=== PATIENT | female | born 1965 | race Caucasian/White ===

== ENCOUNTER → 2016-04-22 12:20 | Outpatient (CLI) | payer BC | END | disposition home or self-care (01) | LOC: D.MRI 12:20 | DX: S43.491A Other sprain of right shoulder joint, initial encounter (principal) ==

== ENCOUNTER → 2016-06-02 08:45 | Outpatient (CLI) | payer BC ==
--- NOTE | 2016-06-06 08:22 | EMG ---
PATIENT:LIBBY DIETZ DATE OF SERVICE: 06/02/16 MEDICAL RECORD: [id number] DATE OF : 67 LOCATION: [facility] ADMISSION DATE: REFERRING PHYSICIAN: JUVENTINO GAYLE DO INTERPRETING PHYSICIAN: ADIEL SCHAFFER MD DATE OF SERVICE: 06/02/2016 REFERRED BY: Dr. Gayle as an outpatient. DATE OF EXAMINATION: 06/02/2016 ELECTROMYOGRAPHIC DATA: Electromyographic examination is limited to both upper extremities. In the right upper extremity, right median motor stimulation elicits a compound motor action potential with a distal latency of 4.1 milliseconds, peak amplitude of 5 millivolts, and calculated conduction velocity of 57 meters per second. Right ulnar motor stimulation elicits a compound motor action potential with a distal latency of 2.7 milliseconds, peak amplitude of 11 millivolts and calculated conduction velocity of 61 meters per second. Right ulnar motor stimulation across the elbow fails to elicit evidence of conduction block at this level. Antidromic right median sensory stimulation elicits a response with a distal latency of 5.0 milliseconds, amplitude of 14 microvolts and calculated conduction velocity of 54 meters per second. Antidromic right ulnar sensory stimulation elicits a response with a distal latency of 3.2 milliseconds, amplitude of 30 microvolts and calculated conduction velocity of 59 meters per second. The right median F wave has a latency of 26 milliseconds. In the left upper extremity, left median motor stimulation elicits a compound motor action potential with a distal latency of 3.5 milliseconds, peak amplitude of 9 millivolts, and calculated conduction velocity of 58 meters per second. Left ulnar motor stimulation elicits a compound motor action potential with a distal latency of 2.8 milliseconds, peak amplitude of 11 millivolts and calculated conduction velocity of 66 meters per second. Left ulnar motor stimulation across the elbow fails to elicit evidence of conduction block at this level. Antidromic left median sensory stimulation elicits a response with a distal latency of 3.8 milliseconds, amplitude of 24 microvolts and calculated conduction velocity of 56 meters per second. Antidromic left ulnar sensory stimulation elicits a response with a distal latency of 3.2 milliseconds, amplitude of 30 microvolts and calculated conduction velocity of 59 meters per second. The left median F wave has a latency of 28 milliseconds. Needle electrode examination is limited to both upper extremities as well. Muscles interrogated include the abductor pollicis brevis, first dorsal interosseous, abductor digiti minimi, pronator teres, biceps brachii, triceps and deltoid. There is no abnormality of insertional activity and no abnormal spontaneous activity is seen in all muscles interrogated. Motor unit potential morphology and the pattern of motor unit potential firing and recruitment is normal in all muscles sampled. INTERPRETATION: Electromyographic examination of both upper extremities is indicative of median neuropathy, at or distal to the wrist on the right, mild to moderate in degree electrically on the right, consistent with the diagnosis of right carpal tunnel syndrome. There is no electrical evidence of a superimposed ELECTROMYGRAM/NERVE CONDUCTION [id number] LIBBY DIETZ cervical radiculopathy or other lesion of the lower motor neuron in either upper extremity at this time. There is no evidence of active denervation. TRANSINT:[id number] Voice Confirmation ID: [id number] DOCUMENT ID: [id number] ADIEL SCHAFFER MD at 0822 CC: [id number] DICTATION DATE: 06/03/16 0850 BRAIDER SETTER: 06/04/16 0104 DEP CLI 06/02/16 [facility] [address] [place] [address]
== END | disposition home or self-care (01) ==
LOC: D.CT 04-15 15:30 → D.MAMMO 08:00 → D.CN 08:30 → D.MAMMO 08:45
DX: R51 Headache (principal); G56.03 Carpal tunnel syndrome, bilateral upper limbs

== ENCOUNTER 2017-02-01 12:45 | Day surgery (SDC) | payer BC ==
[2017-02-01 13:15] LABS: HEMATOCRIT 39.4 % (36.0-48.0); HEMOGLOBIN 12.7 g/dL (12-16); MCH 25.5 pg (26.0-34.0); MCHC 32.2 g/dL (31.0-37.0); MCV 79.1 fL (80.0-100.0); MEAN PLATELET VOLUME 9.3 fL (7.4-10.4); RBC 4.98 10x6/uL (4.00-5.40); RDW 15.9 % (11.5-14.5)
[2017-02-01 13:16] VITALS: BP 147/77; BMI 24.7
[2017-02-01 13:20] LABS: HCG URINE NEGATIVE (NEGATIVE)
--- NOTE | 2017-02-05 12:24 | OP ---
PATIENT NAME: LIBBY DIETZ MEDICAL RECORD: [id number] :67 LOCATION:[facility] ADMISSION DATE: SURGEON: DAVY BRANTLEY DO DATE OF OPERATION: 02/01/2017 PROCEDURE: Colonoscopy. INDICATIONS FOR PROCEDURE: Screening for colorectal cancer. SCOPE: Olympus video pediatric colonoscope. MEDICATIONS: Propofol 230 mg IV per anesthesia. WITHDRAWAL TIME: 7 minutes. ESTIMATED BLOOD LOSS: None. COMPLICATIONS: None. FINDINGS: Informed consent was given. The patient was made comfortable with the above medication. After reaching an adequate level of sedation by slow IV push, the patient was placed on her left side. A digital rectal examination was performed and revealed some small nonbleeding external hemorrhoids. The endoscope was then advanced under direct visualization through the rectum to the terminal ileum. The scope was slowly withdrawn and the mucosa was carefully examined. The prep quality was excellent. There were no polyps visualized on today's examination. There was evidence of mild diverticulosis involving the transverse colon, descending colon, and sigmoid colon. There was no evidence of diverticulitis. Retroflexion was performed in the rectum with visualization of small nonbleeding internal hemorrhoids. The endoscope was then withdrawn from the patient. The patient tolerated the procedure well. There were no complications. IMPRESSION: 1. Diverticulosis without evidence of diverticulitis. 2. Small nonbleeding internal and external hemorrhoids. PLAN AND RECOMMENDATIONS: 1. Discharge home when recovery parameters are met. 2. Recommend a high-fiber diet and consider supplementation with psyllium husk fiber 1-2 tablespoons daily to maintain regular soft bowel movements. 3. Continue current medications. 4. Recall colonoscopy in 7 years for screening purposes. TRANSINT:[id number] Voice Confirmation ID: [id number] DOCUMENT ID: [id number] OPERATIVE REPORT [id number] LIBBY DIETZ DAVY BRANTLEY DO at 1224 CC: [id number] DICTATION DATE: 02/01/17 1428 [employer]: 02/01/17 1552 [facility] 02/01/17 [facility] [address] [place] [address]
== END 2017-02-01 17:59 | disposition home or self-care (01) ==
LOC: D.OPS 12:45
PROVIDERS: Anesthesiology; Internal Medicine Gastroenterology
DX: Z12.11 Encounter for screening for malignant neoplasm of colon (principal); K57.30 Diverticulosis of large intestine without perforation or abscess without bleeding; K64.8 Other hemorrhoids; K64.4 Residual hemorrhoidal skin tags; Z01.812 Encounter for preprocedural laboratory examination

== ENCOUNTER 2017-02-22 14:01 | Emergency (ER) | payer BC | END 2017-02-22 17:50 | disposition home or self-care (01) | LOC: D.ER 14:01 | DX: H10.32 Unspecified acute conjunctivitis, left eye (principal); F17.200 Nicotine dependence, unspecified, uncomplicated ==

== ENCOUNTER 2017-03-06 07:00 | Day surgery (SDC) | payer BC ==
[~2017-03-06] VITALS: Ht 160 cm; Wt 69.1 kg
[2017-03-06 07:08] VITALS: BP 140/91; Ht 160 cm; Wt 69.1 kg
[2017-03-06 07:18] LABS: BASOPHILS 0.2 % (0-2); HEMATOCRIT 38.4 % (36.0-48.0); IMMATURE GRANULOCYTES 0.3 % (0-5); LYMPHOCYTES 35.9 % (15-50); MCHC 31.3 g/dL (31.0-37.0); MEAN PLATELET VOLUME 9.5 fL (7.4-10.4); MONOCYTES 9.7 % (2-11); NEUTROPHILS 52.9 % (40-80); PLATELET COUNT 331 10x3/uL (130-400); RDW 15.3 % (11.5-14.5); WBC 5.8 10x3/uL (4.8-10.8)
[2017-03-06 07:32] LABS: HCG URINE NEGATIVE (NEGATIVE)
[2017-03-06 07:49] LABS: CALC OSMOLALITY 280 mosm/kg (275-300); CALCIUM 9.5 mg/dL (8.5-10.1); CARBON DIOXIDE 27.4 mmol/L (21.0-32.0); CHLORIDE - SERUM 103 mmol/L (98-107); CREATININE - SERUM 0.7 mg/dL (0.6-1.3); GLUCOSE 111 mg/dL (74-106); POTASSIUM - SERUM 3.7 mmol/L (3.5-5.1); SODIUM 141 mmol/L (136-145); UREA NITROGEN 10 mg/dL (7-18); eGFR NON AFRICAN AMERICAN > 90 mL/min (90-120)
--- NOTE | 2017-03-06 09:21 | NUR ---
0900 IV DC WITH CATHER TIP INTACT
--- NOTE | 2017-03-07 11:02 | OP ---
PATIENT NAME: LIBBY DIETZ MEDICAL RECORD: [id number] :67 LOCATION:[facility] ADMISSION DATE: SURGEON: DAVY BRANTLEY DO DATE OF OPERATION: 03/06/2017 PROCEDURE: EGD with biopsies. INDICATIONS FOR PROCEDURE: Epigastric abdominal pain. SCOPE: Olympus video gastroscope. MEDICATIONS: Propofol 250 mg IV per anesthesia. ESTIMATED BLOOD LOSS: Minimal. COMPLICATIONS: None. FINDINGS: Informed consent was given. The patient was made comfortable with the above medication. After reaching an adequate level of sedation by slow IV push, the patient was placed on her left side. The endoscope was then advanced under direct visualization through the mouth to the second portion of the duodenum. The entire esophagus appeared normal. At the GE junction, there was very mild evidence of LA class A reflux-induced esophagitis. The endoscope was advanced beyond the GE junction into the stomach and retroflexed to view the cardia and fundus, which appeared normal. In the body, antrum, and prepyloric regions of the stomach, there was some patchy erythema and granularity consistent with possible gastritis. Random biopsies were taken with cold forceps to submit for histology and to rule out H. pylori. The endoscope was advanced beyond the pylorus into the duodenum where the bulb and second portion of the duodenum appeared normal. Random biopsies were taken to submit for histopathology. The endoscope was then withdrawn from the patient. The patient tolerated the procedure well and there were no complications. IMPRESSION: 1. LA class A reflux-induced esophagitis. 2. Erythema and granularity of the stomach consistent with possible gastritis, biopsies pending. PLAN AND RECOMMENDATIONS: 1. Discharge home when recovery parameters are met. 2. Follow up biopsy specimen results. 3. GERD, diet, and reflux precautions. 4. Right upper quadrant ultrasound regarding the epigastric pain with eating. 5. Start Omeprazole 20 mg daily for heartburn symptoms. We will follow symptoms while on medications and determine if she can be switched to an H2 joseph or if she should remain on low dose PPI therapy for symptom relief. TRANSINT:[id number] Voice Confirmation ID: [id number] DOCUMENT ID: [id number] OPERATIVE REPORT [id number] LIBBY DIETZ DAVY BRANTLEY DO at 110 CC: [id number] DICTATION DATE: 03/06/17 0821 [employer]: 03/06/17 1135 [facility] 03/06/17 [facility] [address] [place] [address]
== END 2017-03-06 09:20 | disposition home or self-care (01) ==
LOC: D.OPS 07:00
PROVIDERS: Anesthesiology; Internal Medicine Gastroenterology
DX: R10.13 Epigastric pain (principal); K21.0 Gastro-esophageal reflux disease with esophagitis; Z01.812 Encounter for preprocedural laboratory examination

== ENCOUNTER → 2017-03-08 07:31 | Outpatient (CLI) | payer BC ==
[2017-03-06 07:08] VITALS: BMI 26.9
== END | disposition home or self-care (01) ==
LOC: D.US 07:31
DX: R10.9 Unspecified abdominal pain (principal)

== ENCOUNTER 2018-02-11 10:59 | Emergency (ER) | payer BC ==
[~2018-02-11] VITALS: Ht 160 cm; Wt 71.4 kg
[2018-02-11 11:12] VITALS: Ht 160 cm; Wt 71.4 kg
[2018-02-11] MEDS ORDERED: IBUPROFEN800 MG PO (13:40)
[2018-02-11 14:12] VITALS: BP 126/68
== END 2018-02-11 14:14 | disposition home or self-care (01) ==
LOC: D.ER 10:59
DX: S60.041A Contusion of right ring finger without damage to nail, initial encounter (principal); W23.0XXA Caught, crushed, jammed, or pinched between moving objects, initial encounter; Y93.89 Activity, other specified; Y92.019 Unspecified place in single-family (private) house as the place of occurrence of the external cause; I10 Essential (primary) hypertension

== ENCOUNTER → 2020-08-03 08:36 | Outpatient (CLI) | payer BC ==
[2018-02-11 11:12] VITALS: BMI 27.8
[~2020-08-03 08:36] MED LIST: IBUPROFEN800 MG PO
== END | disposition home or self-care (01) ==
LOC: D.CT 08:36
PROVIDERS: ATTEND Family Medicine
DX: I65.29 Occlusion and stenosis of unspecified carotid artery (principal)

== ENCOUNTER → 2020-09-14 07:46 | Outpatient (CLI) | payer BC ==
[2018-02-11 11:12] VITALS: BMI 27.8
== END | disposition home or self-care (01) ==
LOC: D.US 07:46
PROVIDERS: ATTEND Family Medicine
DX: E04.1 Nontoxic single thyroid nodule (principal)